=== PATIENT | female | born 1945 | race Caucasian/White ===

== ENCOUNTER 2025-03-11 18:46 | Observation (INO) ==
[2025-03-11 20:44] LABS: MEAN PLATELET VOLUME 8.2 fL (7.4-11.0); RED CELL DISTRIBUTION WIDTH 16.1 % (11.6-16.5)
[2025-03-11 20:52] LABS: CREATININE 1.85 mg/dL (0.55-1.02); eGFR NON BLACK RACES 28 (>60)
--- NOTE | 2025-03-11 21:36 | EKG ---
Test Reason : elevated potassium Blood Pressure : */* mmHG Vent. Rate : 62 BPM Atrial Rate : 62 BPM P-R Int : 176 ms QRS Dur : 172 ms QT Int : 472 ms P-R-T Axes : * -70 80 degrees QTc Int : 479 ms AV dual-paced rhythm Abnormal ECG When compared with ECG of 18-JUL-2023 04:57, No significant change was found Confirmed by Alcides Edgar MD ([id number]) on 03/12/2025 6:31:14 AM Referred By: Confirmed By: Alcides Edgar MD
--- NOTE | 2025-03-11 22:17 | DR.GENAD ---
HPI Time Seen Time Seen by Provider: 03/11/25 20:15 PCP Primary Care Physician: WALTER HPI Comment HPI Comment: Patient states he is completely asymptomatic and at her baseline. She was sent over by Dr. Watson due to elevated potassium on labs that she did as an outpatient. Her potassium was 6.2. She does have chronic anemia with a hemoglobin of 8 that is being managed outpatient. Patient denies any melena, hematochezia, hematemesis or vaginal bleeding. Complaint/Symptoms Chief Complaint:: PT IN ED VIA WHEELCHAIR STATING SHE WAS TOLD TO COME TO THE ER BY DR. WATSON FOR ELEVATED POTASSIUM. PER LAB RESULTS SENT OVER BY DR. WATSON POTASSIUM LEVEL IS 6.2 COVID-19 Coronavirus risk:travel/contact w/high risk person: No Has patient experienced Coronavirus symptoms: No Source History Provided: Patient Mode of Arrival Mode of Arrival: Wheelchair Timing Onset of Chief Complaint: 03/11/25 PMH PMH Past Medical History: Yes Past Medical History: Anemia, Arthritis, Coronary Artery Disease, Diabetes, Dyslipidemia, GERD, Hypertension, [place] and Renal Disease Past Medical History Comment: [facility] Past Surgical History: Yes Surgical History: Appendectomy, Cholecystectomy, Ortho Surgery and Other Past Surgical History Comment: PPM Family History History of Family Medical Conditions: Yes Family Medical History: Diabetes Mellitus, Cancer, [place], Heart Failure and Hypertension Social History Does patient currently use any type of tobacco product: No Have you used tobacco products in the last 12 months: No Type of Tobacco Use: None Does any household member use tobacco: No Alcohol Use: None Do you use any recreational Drugs:: No Lives With: Family Lives Where: Home Travel Risk Coronavirus risk:travel/contact w/high risk person: No Has patient experienced Coronavirus symptoms: No Infectious screening In the last 2 months have you had wt loss of >10#?: NO Have you had fever, night sweats or hemotysis?: No Have you traveled outside the country in the last 6 months?: No Isolation: Standard ROS Review of Systems Constitutional: No Symptoms Reported Eyes: No Symptoms Reported ENTM: No Symptoms Reported Respiratoy: No Symptoms Reported Cardiovascular: No Symptoms Reported; negative Chest Pain, Palpitations or Syncope Gastrointestinal/Abdominal: No Symptoms Reported Genitourinary: No Symptoms Reported Neurological: No Symptoms Reported Integumentary: No Symptoms Reported Hematologic/Lymphatic: No Symptoms Reported Endocrine: No Symptoms Reported Psychiatric: No Symptoms Reported All Other Systems: Reviewed and Negative PE Vital Signs Vitals: Vital Signs Temperature 98.0 F Pulse Rate 60 Pulse Rate 60 Pulse Rate 60 Pulse Rate 60 Pulse Rate 61 Pulse Rate 61 Pulse Rate 63 Pulse Rate 61 Respiratory Rate 22 Respiratory Rate 24 Respiratory Rate 20 Respiratory Rate 15 Respiratory Rate 20 Respiratory Rate 7 Respiratory Rate 8 Respiratory Rate 20 Blood Pressure 135/59 Blood Pressure 127/60 Blood Pressure 122/59 Blood Pressure 122/59 Blood Pressure 112/67 O2 Sat by Pulse Oximetry 97 O2 Sat by Pulse Oximetry 98 O2 Sat by Pulse Oximetry 97 O2 Sat by Pulse Oximetry 97 O2 Sat by Pulse Oximetry 99 O2 Sat by Pulse Oximetry 98 O2 Sat by Pulse Oximetry 99 O2 Sat by Pulse Oximetry 98 General Limitations: No Limitations General Appearance: Alert and In No Apparent Distress Head Head Exam: Normal Inspection Eyes Eye exam: Normal Appearance Neck Neck Exam: Normal Inspection Chest Chest Inspection: Normal Inspection Respiratory Respiratory Exam: Normal Lung Sounds Bilat Respiratory Exam: Bilateral: Clear to Auscultation Cardiovascular Cardiovascular Exam: Regular Rate and Normal Rhythm Abdominal Exam Abdominal Exam: Normal Inspection, Normal Bowel Sounds and Soft Extremities Extremities Exam: Normal Inspection Back Back Exam: Normal Inspection Neurologic Neurological Exam: Alert and Oriented X3 Psychiatric Psychiatric Exam: Normal Affect and Normal Mood Skin Skin Exam: Warm, Dry, Intact and Normal Color COURSE Treatment Treatment: Patient with hyperkalemia. Patient currently asymptomatic. Patient's hemoglobin is also severely low but not low enough for transfusion as patient is asymptomatic at this time. Discussed diagnostic and treatment options with patient and family and they are agreeable to admission. Consultation Consultation Comments: Discussed case with Dr. Peters and he is agreeable to admit [facility] Labs Reviewed Laboratory Results Reviewed?: Yes 03/11/25 20:24 03/11/25 20:24 Laboratory: WBC 5.2 X10^3/uL (3.6-10.0) 03/11/25 20:24 RBC 2.52 X10^6/uL (3.5-5.4) L 03/11/25 20:24 Hgb 8.0 g/dL (12.0-16.0) L 03/11/25 20:24 Hct 24.1 % (36.0-47.0) L 03/11/25 20:24 MCV 95.9 fL (80.0-100.0) 03/11/25 20:24 MCH 31.9 pg (27.0-34.0) 03/11/25 20: MCHC 33.2 g/dL (33.0-35.0) 03/11/25 20: RDW 16.1 % (11.6-16.5) 03/11/25 20:24 Plt Count 205 X10^3/uL (150.0-450.0) 03/11/25 20: MPV 8.2 fL (7.4-11.0) 03/11/25 20:24 Neut % (Auto) 56.6 % (42.0-75.0) 03/11/25 20: Lymph % (Auto) 30.1 % (21.0-51.0) 03/11/25: [place] % (Auto) 7.4 % (0.0-13.0) 03/11/25 20: Eos % (Auto) 4.9 % (0.9-2.9) H 03/11/25 20: Baso % (Auto) 1.0 % (0.2-1.0) 03/11/25 20:24 Neut # (Auto) 3.0 x10^3/uL (2.2-4.8) 03/11/25 20: Lymph # (Auto) 1.6 X10^3/uL (1.3-2.9) 03/11/25 20:24 [place] # (Auto) 0.4 x10^3/uL (0.3-0.8) 03/11/25 20:24 Eos # (Auto) 0.3 x10^3/uL (0.0-0.2) H 03/11/25 20:24 Baso # (Auto) 0.1 X10^3/uL (0.0-0.1) 03/11/25 20:24 Absolute Nucleated RBC 0.1 /100WBC 03/11/25 20:24 Sodium 137 mmol/L (136-145) 03/11/25 20:24 Corrected Sodium TNP 03/11/25 20:24 Potassium 6.6 mmol/L (3.5-5.1) H* 03/11/25 20:24 Chloride 108 mmol/L (98-107) H 03/11/25 20:24 Carbon Dioxide 22.2 mmol/L (21-32) 03/11/25 20:24 BUN 39 mg/dL (7-18) H 03/11/25 20:24 Creatinine 1.85 mg/dL (0.55-1.02) H 03/11/25 20:24 Est GFR (MDRD) Af Amer 34 (>60) L 03/11/25 20:24 Est GFR (MDRD) Non-Af 28 (>60) L 03/11/25 20:24 Glucose 78 mg/dL (65-99) 03/11/25 20:24 Calcium 10.0 mg/dL (8.5-10.1) 03/11/25 20:24 Corrected Calcium TNP 03/11/25 20:24 Total Bilirubin 0.50 mg/dL (0.2-1.0) 03/11/25 20:24 AST 20 Units/L (15-37) 03/11/25 20:24 ALT 24 Units/L (12-78) 03/11/25 20:24 Alkaline Phosphatase 183 Units/L (46-116) H 03/11/25 20:24 Total Protein 7.6 g/dL (6.4-8.2) 03/11/25 20:24 Albumin 3.7 g/dL (3.4-5.0) 03/11/25 20:24 Globulin 3.9 g/dL (2.5-4.5) 03/11/25 20:24 Albumin/Globulin Ratio 0.9 Ratio (1.1-2.1) L 03/11/25 20:24 EKG Rate: 62 Rhythm: Paced (AV dual paced rhythm) ST: Normal Opioid Opioid Risk Tool Age (Osorio box if 16-45): No History of Preadolescent Sexual Abuse: No Total: 0 Total Score Risk Category: Low Risk Copyright: [employer] predicting aberrant behaviors Discharge Plan Diagnosis Discharge Problem: Hyperkalemia, Anemia Discharge Plan Patient Disposition: 09 ADMITTED INPATIENT Condition: Stable Prescriptions: No Action atorvastatin 40 mg tablet 40 mg PO QDAY methenamine hippurate 1 gram tablet 1 g PO BID omeprazole 20 mg capsule,delayed release(DR/EC) 20 mg PO QDAY allopurinol 300 mg tablet 300 mg PO QDAY furosemide 20 mg tablet 20 mg PO BID carbidopa-levodopa 25-100 mg tablet 1 tab PO DAILY olmesartan 40 mg tablet 40 mg PO QDAY Health Concerns: Post Hospitalization: new medications and changes needed to prevent readmission or further decline. Pt educated and given instructions on all concerns. Plan of Treatment: Continue with present treatment and follow up plan. Pt is to keep follow up appointment as instructed and take medications as ordered. Orders to Discharge Patient Discharge Orders: Transfer (Routine); Ordered 03/11/25 Ordered By: Davon Morataya Follow ups/Referrals Follow ups/Referrals: SUSHMA WATSON [Primary Care Provider, MEDICAL] - 3 days Instructions Stand Alone Forms: Find Help Web Site, Post Hospital Follow Up Care Print Language: INDONESIAN
[2025-03-11] MEDS: LOKELMA POWDER PO ONE (22:53)
[2025-03-11] MEDS ORDERED: NORCO 5/325 MG TAB PO PRN (22:56)
[2025-03-11] MEDS ORDERED: TYLENOL 325 MG TAB PO PRN (22:56)
[2025-03-12 00:07] VITALS: BMI 31.6
[2025-03-12] MEDS: ULTRAM PO PRN (05:35)
[2025-03-12 05:41] LABS: MEAN PLATELET VOLUME 8.7 fL (7.4-11.0); RED CELL DISTRIBUTION WIDTH 15.9 % (11.6-16.5)
[2025-03-12 05:52] LABS: COR CA(FOR HYPOALB) 10.7 mg/dL (8.5-10.1); COR NA(FOR HYPERGLY) 140.0 mmol/L (136-145); CREATININE 1.77 mg/dL (0.55-1.02); eGFR NON BLACK RACES 29.0 (>60)
[2025-03-12] MEDS: CONSULT PHARMACY - POTASSIUM & MAGNESIUM XX SCH (07:33)
[2025-03-12] MEDS: LOKELMA POWDER PO SCH ×2 (07:33→11:18)
[2025-03-12] MEDS: ZYLOPRIM PO SCH (08:22)
[2025-03-12] MEDS: SINEMET (PLAIN) 25/100 MG PO SCH (08:22)
[2025-03-12] MEDS: LASIX PO SCH (08:22)
[2025-03-12] MEDS: LIPITOR TAB 40 MG PO SCH (08:22)
[2025-03-12] MEDS: BENICAR PO SCH (08:22)
[2025-03-12 08:57] LABS: RETICULOCYTE % 1.09 % (0.8-2.2)
[2025-03-12] MEDS ORDERED: NS 500 ML IV 500 ML IV ONE (09:20)
[2025-03-12] MEDS: KAYEXALATE SUSP PO SCH (09:27)
[2025-03-12] MEDS: LASIX IVP SCH (09:28)
[2025-03-12] MEDS: NS 1,000 ML IV 1,000 ML IV SCH (09:28)
[2025-03-12] MEDS: ZOFRAN INJ 4 MG VIAL IVP PRN (09:46)
[2025-03-12] MEDS: NS 500 ML IV 500 ML IV ONE (09:51)
[2025-03-12] MEDS: APRESOLINE TAB 10 MG PO SCH (14:51)
[2025-03-13 00:27] VITALS: O2SAT 94
[2025-03-13 04:44] LABS: MEAN PLATELET VOLUME 8.1 fL (7.4-11.0); RED CELL DISTRIBUTION WIDTH 17.7 % (11.6-16.5)
[2025-03-13 04:58] LABS: CREATININE 1.76 mg/dL (0.55-1.02); eGFR NON BLACK RACES 29 (>60)
[2025-03-13 07:50] VITALS: BP 131/56; PULSE 73; RESP 20; TEMP 97.5
[2025-03-13] MEDS: ZOFRAN INJ 4 MG VIAL IVP PRN (10:07)
--- NOTE | 2025-03-13 12:11 | CT ---
EXAM: CTA abdomen and pelvis with and without contrast HISTORY: Hypertension TECHNIQUE: Axial pre and postcontrast images with coronal and sagittal reformats. Three- dimensional maximum intensity projection images were obtained and evaluated. Dose reduction techniques were used with MA/kv adjusted for body size. COMPARISON: None FINDINGS: Vascular findings: The abdominal aorta is normal in caliber but somewhat ectatic. Diffuse calcific atherosclerotic change is present. No evidence for dissection. 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 Distal to the stenosis there is marked calcific atherosclerotic change with post stenotic dilatation up to 12.8 mm. The aneurysmal segment measures about 2.8 cm in length. The origin and visualized portions of the SMA appeared normal. There is calcific atherosclerotic change at the origin of the left renal artery however no significant stenosis appears to be present. There is calcific atherosclerotic change near the origin of the right renal artery distal to which there is a beaded appearance suggestive of fibromuscular dysplasia with the remainder of the artery demonstrating greater than 50% stenosis. Nonvascular findings: Lung bases are clear. There is a small hiatal hernia present. Liver, spleen, adrenal glands, and pancreas appear within normal limits. There is a 1 cm splenic cyst present. Patient is status post cholecystectomy. Kidneys are small but unobstructed and without stones or masses. No definite ureteral calculi are identified. Appendix not identified with absolute certainty. No secondary signs of appendicitis identified. There may be a tiny appendiceal stump present. No intraperitoneal or retroperitoneal lymphadenopathy of significance is identified. There are no findings suggestive of enteritis, colitis, or diverticulitis. Diverticulosis of the sigmoid colon is present. No pelvic masses, pelvic fluid, or pelvic lymphadenopathy is identified. No definite bladder abnormality identified. No lytic or blastic skeletal lesions of significance identified. Spinal osteopenia is identified. 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 Normal-appearing SMA, ERYN, left renal artery Calcific atherosclerotic change at the origin of the right renal artery distal to which the artery assumes a somewhat beaded appearance suggestive of possible fibromuscular dysplasia. There is a long segment of 50% or greater than 50% narrowing of the involved right renal artery No acute inflammatory process identified within the abdomen or pelvis Small hiatal hernia Thoracolumbar spinal osteopenia. THIS IS AN ELECTRONICALLY VERIFIED FINAL REPORT 03/13/2025 12:08 PM - Electronically signed by Alfonso Casas MD
== END 2025-03-13 13:20 | disposition home or self-care (01) ==
LOC: EDBD → ER 18:46 → MED/SURG 18:46
PROVIDERS: ADMIT Family Medicine; ATTEND Obstetrics & Gynecology Obstetrics
DX: M85.88 Other specified disorders of bone density and structure, other site; L89.151 Pressure ulcer of sacral region, stage 1; G25.81 Restless legs syndrome; Y92.9 Unspecified place or not applicable; K44.9 Diaphragmatic hernia without obstruction or gangrene; I10 Essential (primary) hypertension; G20.A1 Parkinson's disease without dyskinesia, without mention of fluctuations; I25.10 Atherosclerotic heart disease of native coronary artery without angina pectoris; Z59.82 Transportation insecurity; R94.4 Abnormal results of kidney function studies; E87.5 Hyperkalemia; D64.89 Other specified anemias; T25.021A Burn of unspecified degree of right foot, initial encounter; Z87.440 Personal history of urinary (tract) infections; E11.65 Type 2 diabetes mellitus with hyperglycemia; R94.31 Abnormal electrocardiogram [ECG] [EKG]; X10.2XXA Contact with fats and cooking oils, initial encounter; Z74.1 Need for assistance with personal care; K21.9 Gastro-esophageal reflux disease without esophagitis; R74.8 Abnormal levels of other serum enzymes; E78.5 Hyperlipidemia, unspecified